=== PATIENT | male | born 1965 | race Caucasian/White ===

== ENCOUNTER 2018-10-11 12:00 | Emergency (ER) | payer MEDICAID ==
[~2018-10-11] VITALS: Ht 175.3 cm; Wt 100.0 kg
[2018-10-11] MEDS ORDERED: SODIUM CHLORIDE 0.9% 1,000 ML IV ONE (14:18)
[2018-10-11 16:07] LABS: BASOPHILS % 0.6 % (0.0-2.0); EOSINOPHILS % 4.3 % (0.0-5.0); HEMATOCRIT. 43.1 % (42.0-52.0); HEMOGLOBIN. 14.1 g/dL (14.0-18.0); LYMPHOCYTES % 23.1 % (20.0-50.0); MEAN CORPUSCULAR HEMOGLOBIN 28.7 pg (28.0-32.0); MEAN CORPUSCULAR VOLUME 87.9 fL (80.0-94.0); MEAN PLATELET VOLUME 9.9 fl (7.4-10.4); MONOCYTES % 8.6 % (2.0-8.0); NEUTROPHILS % 63.4 % (40.0-76.0); PLATELET 152 x1000/uL (130-400); RED CELL DISTRIBUTION WIDTH 13.6 % (11.6-14.6)
[2018-10-11 16:11] LABS: CHLORIDE 106 mEq/L (98-107)
[2018-10-11 17:25] LABS: CLARITY URINE CLEAR (CLEAR); COLOR URINE YELLOW (YELLOW); KETONES URINE NEGATIVE (NEGATIVE); LEUKOCYTE ESTERASE URINE NEGATIVE (NEGATIVE); NITRITE URINE NEGATIVE (NEGATIVE); OCCULT BLOOD URINE NEGATIVE (NEGATIVE); PROTEIN URINE NEGATIVE (NEGATIVE); SPECIFIC GRAVITY URINE 1.021 (1.005-1.030); UROBILINOGEN URINE 0.2 E.U./dL (0.2-1.0)
[2018-10-11 18:44] VITALS: BP 126/82
[2018-10-12] MEDS ORDERED: METF-416 PO (09:32)
[2018-10-12] MEDS ORDERED: AMOX500T2 PO (09:32)
[2018-10-12] MEDS ORDERED: AMIT25TA9 PO (09:32)
[2018-10-12] MEDS ORDERED: ATOR20TA65 PO (09:33)
[2018-10-12] MEDS ORDERED: LAMO150T PO (09:33)
[2018-10-12] MEDS ORDERED: LAMO300T PO (23:49)
[2018-10-12] MEDS ORDERED: LURA60TA PO (23:49)
== END 2018-10-11 19:00 | disposition home or self-care (01) ==
LOC: ER 12:33
DX: S43.101A Unspecified dislocation of right acromioclavicular joint, initial encounter (principal); M25.562 Pain in left knee; M25.561 Pain in right knee; R53.1 Weakness; I10 Essential (primary) hypertension; E11.9 Type 2 diabetes mellitus without complications; W18.39XA Other fall on same level, initial encounter; Y93.02 Activity, running; Y92.89 Other specified places as the place of occurrence of the external cause
CPT/HCPCS: 29105; 36415; 70450; 71045; 73030; 73562; 80053; 81003; 84484; 85025; 85610; 93005; 99284; J7030; Z7610

== ENCOUNTER 2018-10-12 09:15 | Inpatient (IN) | payer MEDICAID ==
[~2018-10-12] VITALS: Ht 175.3 cm; Wt 90.7 kg
[2018-10-12] MEDS ORDERED: METF-416 PO (09:32)
[2018-10-12] MEDS ORDERED: AMIT25TA9 PO (09:32)
[2018-10-12] MEDS ORDERED: AMOX500T2 PO (09:32)
[2018-10-12] MEDS ORDERED: LAMO150T PO (09:33)
[2018-10-12] MEDS ORDERED: ATOR20TA65 PO (09:33)
[2018-10-12] MEDS ORDERED: SODIUM CHLORIDE 0.9% 1,000 ML IV ONE ×2 (12:00→13:15)
[2018-10-12 12:39] LABS: CLARITY URINE CLEAR (CLEAR); COLOR URINE YELLOW (YELLOW); KETONES URINE NEGATIVE (NEGATIVE); LEUKOCYTE ESTERASE URINE NEGATIVE (NEGATIVE); NITRITE URINE NEGATIVE (NEGATIVE); OCCULT BLOOD URINE NEGATIVE (NEGATIVE); PROTEIN URINE NEGATIVE (NEGATIVE); SPECIFIC GRAVITY URINE 1.016 (1.005-1.030); UROBILINOGEN URINE 0.2 E.U./dL (0.2-1.0)
[2018-10-12 12:41] LABS: BASOPHILS % 0.4 % (0.0-2.0); EOSINOPHILS % 1.9 % (0.0-5.0); HEMOGLOBIN. 13.5 g/dL (14.0-18.0); LYMPHOCYTES % 21.5 % (20.0-50.0); MEAN CORPUSCULAR HEMOGLOBIN 28.9 pg (28.0-32.0); MEAN CORPUSCULAR VOLUME 87.9 fL (80.0-94.0); MEAN PLATELET VOLUME 10.3 fl (7.4-10.4); MONOCYTES % 8.3 % (2.0-8.0); NEUTROPHILS % 67.9 % (40.0-76.0); PLATELET 171 x1000/uL (130-400); RED BLOOD CELL COUNT 4.67 mill/uL (4.7-6.1); RED CELL DISTRIBUTION WIDTH 13.3 % (11.6-14.6)
[2018-10-12 12:43] LABS: CHLORIDE 106 mEq/L (98-107)
[2018-10-12 12:46] LABS: ETHANOL BLOOD < 10 mg/dL
[2018-10-12 12:50] LABS: *BENZODIAZEPINES SCREEN URINE NEGATIVE (NEGATIVE); *COCAINE SCREEN URINE NEGATIVE (NEGATIVE); METHADONE URINE SCREEN NEGATIVE (NEGATIVE); OPIATES URINE SCREEN NEGATIVE (NEGATIVE)
[2018-10-12 12:51] LABS: *AMPHETAMINES SCREEN URINE NEGATIVE (NEGATIVE); *BARBITURATES SCREEN URINE NEGATIVE (NEGATIVE); CANNABINOID URINE SCREEN NEGATIVE (NEGATIVE); PHENCYCLIDINE URINE SCREEN NEGATIVE (NEGATIVE)
[2018-10-12] MEDS ORDERED: AZITHROMYCIN 500 MG in DEXT 5% WATER 250 ML IV SCH (13:15)
[2018-10-12] MEDS ORDERED: CEFTRIAXONE 1 G PREMIX 50 ML IV ONE (13:15)
[2018-10-12] MEDS ORDERED: NALOXONE HCL 0.4 MG/ML 1ML VIAL IV ONE (15:45)
[2018-10-12 16:27] LABS: BG BASE EXCESS -2.9 mmol/L (-2.0-2.0); BG CARBOXYHEMOGLOBIN 0.3 % (0.5-1.5); BG DEOXYHEMOGLOBIN 6.3 % (0.0-5.0); BG FRACTION INSPIRED OXYGEN 32; BG HCO3 ACT 22.5 mmol/L (22.0-26.0); BG METHEMOGLOBIN 0.3 % (0.0-1.5); BG OXYGEN SATURATION 93.7 % (92.0-98.5); BG OXYHEMOGLOBIN 93.1 % (94.0-97.0); BG PCO2 41.5 mmHg (35.0-45.0); BG PH 7.352 (7.350-7.450); BG PO2 73.5 mmHg (75.0-100.0); BG SAMPLE SITE RIGHT BRACHIAL; BG TOTAL HEMOGLOBIN 13.8 g/dL (12.0-18.0); BG VENT MODE NASAL CANNULA
[2018-10-12] MEDS ORDERED: HYDROCODONE/ACETAMINOPHEN 5/325MG TABLET PO PRN (17:00)
[2018-10-12] MEDS ORDERED: ONDANSETRON HCL 4MG/2ML INJ IV PRN (17:00)
[2018-10-12] MEDS ORDERED: MORPHINE SULFATE 4 MG/ML CPJ (NOT FOR IM USE) IV PRN (17:00)
[2018-10-12] MEDS ORDERED: NALOXONE HCL 0.4 MG/ML 1ML VIAL IV NR (19:45)
[2018-10-12 23:30] VITALS: BP 124/65
[2018-10-12] MEDS ORDERED: LURA60TA PO (23:49)
[2018-10-12] MEDS ORDERED: LAMO300T PO (23:49)
[2018-10-13] VITALS: BP 124/65
[2018-10-13] MEDS: SODIUM CHLORIDE 0.45% 1,000 ML IV SCH ×2 (01:43→12:44)
[2018-10-13 04:00] VITALS: BP 130/70
[2018-10-13 07:17] LABS: CREATINE KINASE MB FRACTION 1.2 ng/mL (0.5-3.6)
[2018-10-13 08:00] VITALS: BP 130/86
[2018-10-13] MEDS: ENOXAPARIN 40MG/0.4ML SYR SUBCUT SCH (09:45)
[2018-10-13] MEDS: ASPIRIN 81MG EC TABLET PO SCH (09:45)
[2018-10-13] MEDS: THIAMINE HCL 100MG TABLET PO SCH (09:45)
[2018-10-13] MEDS ORDERED: DEXTROSE 50% WATER 50ML SYRINGE IV PRN (11:00)
[2018-10-13 11:25] LABS: BASOPHILS % 0.4 % (0.0-2.0); EOSINOPHILS % 4.9 % (0.0-5.0); HEMATOCRIT. 42.2 % (42.0-52.0); LYMPHOCYTES % 25.2 % (20.0-50.0); MEAN CORPUSCULAR HEMOGLOBIN 29.1 pg (28.0-32.0); MEAN CORPUSCULAR VOLUME 87.7 fL (80.0-94.0); MEAN PLATELET VOLUME 10.6 fl (7.4-10.4); MONOCYTES % 7.9 % (2.0-8.0); NEUTROPHILS % 61.6 % (40.0-76.0); PLATELET 157 x1000/uL (130-400); RED BLOOD CELL COUNT 4.81 mill/uL (4.7-6.1); RED CELL DISTRIBUTION WIDTH 13.6 % (11.6-14.6)
[2018-10-13 11:35] LABS: CHLORIDE 104 mEq/L (98-107)
[2018-10-13 12:00] VITALS: BP 117/80
[2018-10-13] MEDS: BLOOD SUGAR DIAGNOSTIC STRIP TEST SCH ×3 (12:04→20:24)
[2018-10-13] MEDS: INSULIN LISPRO 100 UNITS/ML SUBCUT SCH ×3 (12:41→20:35)
[2018-10-13 16:00] VITALS: BP 111/61
[2018-10-13 20:00] VITALS: BP 130/78
[2018-10-14] VITALS: BP 132/81
[2018-10-14] MEDS: SODIUM CHLORIDE 0.45% 1,000 ML IV SCH (00:53)
[2018-10-14 04:00] VITALS: BP 148/74
[2018-10-14] MEDS: BLOOD SUGAR DIAGNOSTIC STRIP TEST SCH ×2 (07:40→12:24)
[2018-10-14 07:44] LABS: BASOPHILS % 0.7 % (0.0-2.0); EOSINOPHILS % 5.7 % (0.0-5.0); HEMATOCRIT. 41.3 % (42.0-52.0); HEMOGLOBIN. 13.8 g/dL (14.0-18.0); LYMPHOCYTES % 41.7 % (20.0-50.0); MEAN CORPUSCULAR HEMOGLOBIN 29.1 pg (28.0-32.0); MEAN CORPUSCULAR VOLUME 87.2 fL (80.0-94.0); MEAN PLATELET VOLUME 10.2 fl (7.4-10.4); MONOCYTES % 10.7 % (2.0-8.0); NEUTROPHILS % 41.2 % (40.0-76.0); PLATELET 149 x1000/uL (130-400); RED BLOOD CELL COUNT 4.73 mill/uL (4.7-6.1); RED CELL DISTRIBUTION WIDTH 13.2 % (11.6-14.6)
[2018-10-14 07:51] LABS: CHLORIDE 105 mEq/L (98-107)
[2018-10-14 08:00] VITALS: BP 146/87
[2018-10-14] MEDS: THIAMINE HCL 100MG TABLET PO SCH (09:23)
[2018-10-14] MEDS: ASPIRIN 81MG EC TABLET PO SCH (09:23)
[2018-10-14] MEDS: ENOXAPARIN 40MG/0.4ML SYR SUBCUT SCH (09:24)
[2018-10-14] MEDS: INSULIN LISPRO 100 UNITS/ML SUBCUT SCH ×2 (09:24→12:25)
[2018-10-14 12:00] VITALS: BP 116/79
[2018-10-14 15:52] VITALS: BP 116/79
[2018-10-14 16:00] VITALS: BP 125/79
== END 2018-10-14 16:40 | disposition home or self-care (01) | DRG 48 ==
LOC: ER 09:29 → EDBEDREQ 15:52 → EDBEDREQSVC 15:52 → 7WST 16:24 → EDBEDREQSVC 16:25 → ENRESERV 22:03
PROVIDERS: ADMIT Internal Medicine Nephrology; ATTEND Internal Medicine Nephrology
DX: G90.8 Other disorders of autonomic nervous system (principal); J18.9 Pneumonia, unspecified organism; E11.9 Type 2 diabetes mellitus without complications; I10 Essential (primary) hypertension; R29.6 Repeated falls; W17.89XA Other fall from one level to another, initial encounter; Y93.89 Activity, other specified; Y92.098 Other place in other non-institutional residence as the place of occurrence of the external cause; Y99.8 Other external cause status; Z91.041 Radiographic dye allergy status
CPT/HCPCS: 36415; 36600; 70551; 71045; 73562; 80048; 80305; 80307; 80329; 82375; 82550; 82553; 82805; 82962; 83605; 83735; 84443; 84484; 93005; 93306; 93970; 96365; 96366; 99285; J0456; J0696; J1650; J1815; J7030; J7060